=== PATIENT | female | born 1985 | race Caucasian/White ===

== ENCOUNTER 2020-05-30 23:48 | Emergency (ER) | payer BC ==
--- NOTE | 2020-05-31 00:44 | RAD ---
EXAM DESCRIPTION: Chest,1 View CLINICAL HISTORY:35 years Female, CHEST PAIN Comparison: None FINDINGS: No focal lung consolidation. No pleural effusion. No pneumothorax. Cardiomediastinal silhouette is within normal limits. No acute osseous abnormality. IMPRESSION: No acute cardiopulmonary disease. Electronically signed by: George Rizvi DO 05/31/2020 12:42 AM BARGE ENGINEER
--- NOTE | 2020-05-31 00:45 | ED.PDOC ---
History of Present Illness - General Chief Complaint: Cardiovascular Problem Stated Complaint: chest tightness Time Seen by Provider: 05/31/20 00:12 Source: patient Exam Limitations: no limitations - History of Present Illness Comments: PATIENT PRESENTS WITH COUGH, CHEST TIGHTNESS AND FEVER SINCE 05/26, SHE HAS HAD COVID EXPOSURE, C/O THAT HER CHEST FEELS TIGHT. SHE HAS NOT TAKEN ANYTHING FOR HER SYMPTOMS OR ATTEMPTED TO GET A COVID TEST, SHE STATES SHE WANTS A COVID TEST. NO HEALTH PROBLEMS EXCEPT A HISTORY OF ANXIETY. Timing/Duration: week Cough Quality/Degree: mild Possible Cause: unknown cause Improving Factors: nothing Worsening Factors: nothing Associated Symptoms: denies symptoms Allergies/Adverse Reactions: Allergies NO KNOWN ALLERGY Allergy (Verified 05/31/20 00:05) Home Medications: Ambulatory Orders Control 1 tablet PO DAILY 05/31/20 Review of Systems - Review of Systems Constitutional: States: see HPI, chills, fever EENTM: States: no symptoms reported Respiratory: States: see HPI Cardiology: States: chest pain Gastrointestinal/Abdominal: States: no symptoms reported Genitourinary: States: no symptoms reported Musculoskeletal: States: no symptoms reported Skin: States: no symptoms reported Neurological: States: no symptoms reported Endocrine: States: no symptoms reported Past Medical History (General) - Patient Medical History Hx Seizures: No Hx Stroke: No Hx Dementia: No Hx Asthma: No Hx of COPD: No Hx Cardiac Disorders: No Hx Congestive Heart Failure: No Hx Pacemaker: No Hx Hypertension: No Hx Thyroid Disease: No Hx Diabetes: No Hx Gastroesophageal Reflux: No Hx Renal Disease: No Hx Cancer: No Hx of HIV: No Hx Hepatitis C: No Hx MRSA: No Surgical History: no surgical history - Vaccination History Hx Tetanus, Diphtheria Vaccination: Yes Hx Influenza Vaccination: Yes - Female History Patient : No Family Medical History - Family History Mother Family History: Unknown Physical Exam - Physical Exam General Appearance: Alert, No apparent distress, Well Developed, Well Groomed, Well Hydrated, Well Nourished Neck: non-tender, full range of motion, supple, normal inspection, trachea midline Respiratory: chest non-tender, lungs clear, normal breath sounds, no respiratory distress, no accessory muscle use Cardiovascular/Chest: normal peripheral pulses, regular rate, rhythm, no edema, no gallop Gastrointestinal/Abdominal: normal bowel sounds, non tender, soft, no organomegaly Neurologic: normal mood/affect, oriented x 3 Skin Exam: normal color, warm/dry Lymphatic: no adenopathy Departure - Departure Clinical Impression: Viral URI with cough Time of Disposition: 01:00 Disposition: Discharge to Home or Self Care Condition: Good Departure Forms: ED Discharge - Pt. Copy, Patient Portal Self Enrollment Instructions: DI for Chest Pain, Coronavirus Disease 2019 (COVID-19) Overview, Upper Respiratory Infection ED Referrals: Tito Blue MD [Primary Care Provider] - 1-2 Weeks Home Medications: Ambulatory Orders Control 1 tablet PO DAILY 05/31/20 Additional Instructions: OTIC IBUPROFEN 800 MG THREE TIMES PER DAY FOR FEVER AND DISCOMFORTS. CALL TO GET COVID RESULT IN 2 DAYS. SELF QUARANTINE.
[2020-05-31 01:31] VITALS: BP 131/91; TEMP 100.2; O2SAT 97
== END 2020-05-31 01:32 | disposition home or self-care (01) ==
LOC: ER 23:48
DX: J06.9 Acute upper respiratory infection, unspecified (principal); R07.89 Other chest pain; Z20.822 Contact with and (suspected) exposure to COVID-19

== ENCOUNTER → 2020-06-04 | Outpatient (CLI) | payer BC | LOC: GMAM 18:51 | PROVIDERS: ATTEND Family Medicine | DX: R05 Cough (principal) ==